=== PATIENT | female | born 1985 ===

== ENCOUNTER 2022-10-05 14:22 | Outpatient (CLI) | payer OTHER | END 2022-10-05 15:49 | disposition home or self-care (01) | LOC: PRENATAL 14:22 | PROVIDERS: ATTEND Obstetrics & Gynecology Maternal & Fetal Medicine | DX: O35.9XX0 Maternal care for (suspected) fetal abnormality and damage, unspecified, not applicable or unspecified (principal); O35.3XX0 Maternal care for (suspected) damage to fetus from viral disease in mother, not applicable or unspecified; O09.529 Supervision of elderly multigravida, unspecified trimester; O34.219 Maternal care for unspecified type scar from previous cesarean delivery; O99.280 Endocrine, nutritional and metabolic diseases complicating pregnancy, unspecified trimester; Z3A.20 20 weeks gestation of pregnancy ==

== ENCOUNTER 2022-12-28 15:18 | Outpatient (CLI) | payer OTHER | END 2022-12-28 16:54 | disposition home or self-care (01) | LOC: PRENATAL 15:18 | PROVIDERS: ATTEND Obstetrics & Gynecology Maternal & Fetal Medicine | DX: O26.849 Uterine size-date discrepancy, unspecified trimester (principal); O36.8199 Decreased fetal movements, unspecified trimester, other fetus; O09.529 Supervision of elderly multigravida, unspecified trimester; O34.219 Maternal care for unspecified type scar from previous cesarean delivery; O99.280 Endocrine, nutritional and metabolic diseases complicating pregnancy, unspecified trimester; Z3A.32 32 weeks gestation of pregnancy ==

== ENCOUNTER 2023-02-07 11:26 | Inpatient (IN) | payer OTHER ==
[~2023-02-07] VITALS: Ht 154.9 cm; Wt 2.7 kg
[2023-02-07] MEDS ORDERED: SYNTHROID125 MCG PO (11:34)
[2023-02-07] MEDS ORDERED: ASA81 MG PO (11:34)
[2023-02-07] MEDS ORDERED: PRENATAL TABLE1 EAC1 PO (11:35)
[2023-02-10] MEDS ORDERED: IBUPROFEN800 MG PO (13:04)
[2023-02-10] MEDS ORDERED: DOCUSATE SODIU100 MG PO (13:05)
[2023-02-10] MEDS ORDERED: SYNTHROID50 MCG PO (13:08)
== END 2023-02-10 14:14 | disposition home or self-care (01) | DRG 785 ==
LOC: OB/GYN 11:26 → LDR 11:26 → OB/GYN 15:54
PROVIDERS: ADMIT Obstetrics & Gynecology; ATTEND Obstetrics & Gynecology
PROC: 0UB70ZZ Excision of Bilateral Fallopian Tubes, Open Approach (ICD-10-PCS; 2023-02-07)
PROC: 4A1HXCZ Monitoring of Products of Conception, Cardiac Rate, External Approach (ICD-10-PCS; 2023-02-07)
PROC: 10D00Z1 Extraction of Products of Conception, Low, Open Approach (ICD-10-PCS; principal; 2023-02-07 13:00)
DX: O34.211 Maternal care for low transverse scar from previous cesarean delivery (principal); Z30.2 Encounter for sterilization; Z3A.37 37 weeks gestation of pregnancy; Z37.0 Single live birth; Z20.822 Contact with and (suspected) exposure to COVID-19